=== PATIENT | male | born 1975 | race Caucasian/White ===

== ENCOUNTER → 2017-12-15 | Outpatient (CLI) | payer OTHER ==
[~2017-12-15] MED LIST: CHOL10005 PO; LEVO50TA86 PO; LOR5/325 PO; OSE75 PO
== END ==
LOC: LAB 15:37
PROVIDERS: ATTEND Internal Medicine
DX: R94.5 Abnormal results of liver function studies (principal); E03.9 Hypothyroidism, unspecified; G35 Multiple sclerosis
CPT/HCPCS: 36415; 80074; 82040; 82247; 82310; 82374; 82435; 82565; 82728; 82947; 84075; 84132; 84155; 84295; 84439; 84443; 84450; 84460; 84481; 84520; 86038

== ENCOUNTER → 2017-12-26 | Outpatient (CLI) | payer OTHER ==
--- NOTE | 2017-12-26 14:42 | RADIOLOGY IMAGING REPORT ---
FACILITY: [facility] [place] PATIENT NAME: Florin Montalvo : 1975 MR: [id number] V: [id number] EXAM DATE: ORDERING PHYSICIAN: BOB ORDONEZ TECHNOLOGIST: Location: [facility] [place] Patient: Florin Montalvo : 1975 Visit/Account:[id number] Date of Sevice: 12/26/2017 THYROID HISTORY: elevated LFT COMPARISON: None. FINDINGS: Right lobe: 4.5 x 2.0 x 1.5 cm Left lobe: 4.7 x 1.8 x 1.4 cm Isthmus: 0.5 cm Thyroid heterogeneity: Homogeneous. NODULES: Right lobe: * None discrete. Left lobe: * Small subcentimeter nodule measuring 4 mm is a maximum dimension seen within the medial mid left l obe. Otherwise, there is no dominant nodule seen. Isthmus: * None discrete. VASCULARITY: Within normal limits. ADDITIONAL FINDINGS: None. IMPRESSION: No dominant nodule identified within the left lobe or right lobe thyroid gland. REFERENCE: 2015 [place] [employer] Management Guidelines for Adult Patients with Thyroid Nodules and D ifferentiated Thyroid Cancer: The [place] [employer] Guidelines Task Force on Thyroid Nodul es and Differentiated Thyroid Cancer. SONOGRAPHIC PATTERNS: * Benign: Purely cystic nodules (no solid component); estimated risk of malignancy <1 percent; no bi opsy recommended. * Very Low Suspicion: Spongiform or partially cystic nodules without any of the sonographic features described in low, intermediate, or high suspicion patterns; estimated risk of malignancy <3 percent; consider FNA at > 2 cm (Observation without FNA is also a reasonable option). * Low Suspicion: Isoechoic or hyperechoic solid nodule, or partially cystic nodule with eccentric so lid areas, without microcalcification, irregular margin or ETE (extra-thyroidal extension), or taller than wide shape; estimated risk of malignancy 5-10 percent; recommend FNA at >1.5 cm. * Intermediate Suspicion: Hypoechoic solid nodule with smooth margins without microcalcifications, E TE (extra-thyroidal extension), or taller than wide shape; estimated risk of malignancy 10-20 percent ; recommend FNA at > 1 cm. * High Suspicion: Solid hypoechoic nodule or solid hypoechoic component of a partially cystic nodule with one or more of the following features: irregular margins (infiltrative, microlobulated), microc alcifications, taller than wide shape, rim calcifications with small extrusive soft tissue component, evidence of ETE (extra-thyroidal extension); estimated risk of malignancy >70-90 percent; recommend FNA at > 1 cm. NOTES: * Although a sonographically suspicious subcentimeter thyroid nodule without evidence of extrathyroi danial extension or sonographically suspicious lymph nodes may be observed with close sonographic follow -up rather than pursuing immediate FNA, patient age and preference may modify decision-making. A > 50% interval increase in nodule volume and/or development of new suspicious sonographic features are felt to be a valid reasons for potential re-aspiration of a nodule previously shown to have benig n FNA cytology. Report Dictated By: Damion Martinez MD at 12/26/2017 2:38 PM Report E-Signed By: Damion Martinez MD at 12/26/2017 2:39 PM WSN:[id number]
--- NOTE | 2017-12-30 14:55 | RADIOLOGY IMAGING REPORT ---
FACILITY: [facility] [place] PATIENT NAME: Florin Montalvo : 1975 MR: [id number] V: [id number] EXAM DATE: ORDERING PHYSICIAN: BOB ORDONEZ TECHNOLOGIST: Location: [facility] Patient: Florin Montalvo : 1975 Visit/Account:[id number] Date of Sevice: 12/26/2017 Limited abdominal ultrasound of the right upper quadrant Indication: Elevated liver enzymes Comparison: None available Findings Liver is normal in contour and measures 17.6 cm in length. There is normal hepatopedal portal venous flow. Diffuse fatty infiltration liver without focal parenchymal abnormality. Gallbladder wall thickness is 2.8 mm with no evidence of shadowing stone or sludge within the gallbla dder lumen. Negative sonographic Li's sign reported by the technologist. Common duct measures 3.4 mm in maximum diameter with no evidence of shadowing stone. The head and proximal body of the pancreas is unremarkable. The distal body and tail is obscured by o verlying bowel gas. Abdominal aorta and IVC are patent and unremarkable. The right kidney is normal in size, contour, and echotexture and measures 11.5 cm in length. IMPRESSION: 1. Mild diffuse fatty infiltration of the liver without focal parenchymal abnormality. Report Dictated By: Damion Martinez MD at 12/30/2017 2:22 PM Report E-Signed By: Damion Martinez MD at 12/30/2017 2:51 PM WSN:[id number]
== END ==
LOC: US 03:29
PROVIDERS: ATTEND Internal Medicine
DX: E03.9 Hypothyroidism, unspecified (principal); K76.0 Fatty (change of) liver, not elsewhere classified
CPT/HCPCS: 76536; 76705

== ENCOUNTER → 2018-03-17 | Outpatient (CLI) | payer OTHER | LOC: LAB 07:08 | PROVIDERS: ATTEND Specialist | DX: R94.6 Abnormal results of thyroid function studies (principal); R79.89 Other specified abnormal findings of blood chemistry; G35 Multiple sclerosis; E55.9 Vitamin D deficiency, unspecified | CPT/HCPCS: 80074; 82040; 82247; 82248; 82306; 84075; 84155; 84443; 84450; 84460; 87798 ==

== ENCOUNTER → 2018-03-17 | Outpatient (CLI) | payer OTHER | LOC: LAB 07:07 | PROVIDERS: ATTEND Internal Medicine | DX: E03.9 Hypothyroidism, unspecified (principal) | CPT/HCPCS: 36415; 84439 ==

== ENCOUNTER → 2018-10-28 | Outpatient (CLI) | payer OTHER ==
[~2018-10-28] MED LIST changes: +CIPR-214 PO
== END ==
LOC: LAB 15:55
PROVIDERS: ATTEND Urology
DX: Z30.2 Encounter for sterilization (principal)
CPT/HCPCS: 88302